=== PATIENT | female | born 1975 | race Caucasian/White ===

== ENCOUNTER 2017-02-15 16:21 | Inpatient (IN) | payer OTHER ==
[~2017-02-15] VITALS: Ht 167.6 cm; Wt 77.1 kg
[2017-02-15 17:17] LABS: microscopic required? NO
[2017-02-15 17:25] LABS: BASOPHIL % 0.3 % (0-2); PLATELET COUNT 219 x10^3mcL (130-400)
[2017-02-15 17:34] LABS: RED CELL DISTRIBUTION WIDTH 15.8 % (11.5-14.5)
[2017-02-15 17:35] LABS: CALCIUM 8.5 mg/dL (8.5-10.1); CARBON DIOXIDE 27.7 mmol/L (21-32); CHLORIDE SERUM 104 mmol/L (98-107); CREATININE SERUM 0.7 mg/dL (0.6-1.0); GFR1 > 60 mL/min; GLUCOSE SERUM 86 mg/dL (74-106); POTASSIUM SERUM 3.9 mmol/L (3.5-5.1); SODIUM SERUM 139 mmol/L (136-145)
[2017-02-15 17:37] LABS: urine erythrocyte NEGATIVE (NEGATIVE)
[2017-02-15 17:39] LABS: ALBUMIN 3.5 g/dL (3.4-5.0); ALKALINE PHOSPHATASE 54 U/L (46-116); ALT/SGPT 21 U/L (14-59); AST/SGOT 19 U/L (15-37); BILIRUBIN TOTAL 0.2 mg/dL (0.20-1.00); LIPASE 117 IU/L (73-393); MAGNESIUM 1.7 mg/dL (1.8-2.4); TOTAL PROTEIN, SERUM 6.8 g/dL (6.4-8.2)
[2017-02-15 21:11] VITALS: BP 128/72
[2017-02-15 21:44] LABS: CHOLESTEROL/HDL RATIO 1.8
[2017-02-15 21:46] LABS: AMPHETAMINE QUAL UR NONE DETECTED (NEG <=1000)
[2017-02-15 21:49] LABS: FREE T4 0.79 ng/dL (0.76-1.46); FREE THYROXINE INDEX 2.2 ug/dL (1.4-4.5); T4(THYROXINE) 6.7 ug/dL (4.7-13.3)
[2017-02-15 21:51] LABS: T3 TOTAL 0.92 ng/mL
[2017-02-16 06:13] VITALS: BP 114/57
[2017-02-16 06:14] LABS: BASOPHIL % 0.4 % (0-2); PLATELET COUNT 198 x10^3mcL (130-400)
[2017-02-16 06:42] LABS: CALCIUM 7.9 mg/dL (8.5-10.1); CARBON DIOXIDE 27.7 mmol/L (21-32); CHLORIDE SERUM 106 mmol/L (98-107); CREATININE SERUM 0.7 mg/dL (0.6-1.0); GFR1 > 60 mL/min; GLUCOSE SERUM 78 mg/dL (74-106); MAGNESIUM 1.7 mg/dL (1.8-2.4); PHOSPHOROUS 3.1 mg/dL (2.5-4.9); POTASSIUM SERUM 4.1 mmol/L (3.5-5.1); SODIUM SERUM 141 mmol/L (136-145)
[2017-02-16 06:44] LABS: RED CELL DISTRIBUTION WIDTH 15.7 % (11.5-14.5)
[2017-02-16 09:38] VITALS: BP 112/67
[2017-02-16 13:01] VITALS: BP 108/66
[2017-02-16 18:06] VITALS: BP 126/72
[2017-02-16 21:51] VITALS: BP 119/68
[2017-02-17 06:22] LABS: BASOPHIL % 0.4 % (0-2); PLATELET COUNT 195 x10^3mcL (130-400)
[2017-02-17 06:33] VITALS: BP 131/61
[2017-02-17 06:39] LABS: CARBON DIOXIDE 22.1 mmol/L (21-32); CHLORIDE SERUM 104 mmol/L (98-107); CREATININE SERUM 0.8 mg/dL (0.6-1.0); GFR1 > 60 mL/min; MAGNESIUM 1.8 mg/dL (1.8-2.4); SODIUM SERUM 137 mmol/L (136-145)
[2017-02-17 06:41] LABS: GLUCOSE SERUM 59 mg/dL (74-106)
[2017-02-17 07:21] LABS: RED CELL DISTRIBUTION WIDTH 15.2 % (11.5-14.5)
[2017-02-17 09:22] VITALS: BP 129/77
[2017-02-17 09:25] LABS: IRON 55 ug/dL (50-170); TOTAL IRON BINDING CAPACITY 377 ug/dL (250-450)
[2017-02-17 13:47] VITALS: BP 138/66
[2017-02-17 17:06] VITALS: BP 110/68
[2017-02-17 21:05] VITALS: BP 132/70
[2017-02-18 05:45] VITALS: BP 113/61
[2017-02-18 06:16] LABS: BASOPHIL % 0.1 % (0-2); PLATELET COUNT 221 x10^3mcL (130-400)
[2017-02-18 06:29] LABS: CALCIUM 8.3 mg/dL (8.5-10.1); CARBON DIOXIDE 24.8 mmol/L (21-32); CHLORIDE SERUM 104 mmol/L (98-107); CREATININE SERUM 0.7 mg/dL (0.6-1.0); GFR1 > 60 mL/min; GLUCOSE SERUM 131 mg/dL (74-106); SODIUM SERUM 131 mmol/L (136-145)
[2017-02-18 06:46] LABS: RED CELL DISTRIBUTION WIDTH 15.5 % (11.5-14.5)
[2017-02-18 09:52] VITALS: BP 128/78
[2017-02-18 14:17] VITALS: BP 118/54
[2017-02-18 16:06] VITALS: BP 118/54
[2017-02-18 17:57] VITALS: BP 128/75
== END 2017-02-18 18:10 | disposition home or self-care (01) | DRG 241 ==
LOC: ED 16:21 → DU 20:05 → MU 20:05 → DU 21:05 → MU 02-18 08:50
PROVIDERS: Emergency Medicine; Internal Medicine Gastroenterology; ADMIT Family Medicine
PROC: 0DB78ZX Excision of Stomach, Pylorus, Via Natural or Artificial Opening Endoscopic, Diagnostic (ICD-10-PCS; principal; 2017-02-18 10:15)
PROC: 0DBB8ZX Excision of Ileum, Via Natural or Artificial Opening Endoscopic, Diagnostic (ICD-10-PCS; 2017-02-18 10:15)
DX: K29.70 Gastritis, unspecified, without bleeding (principal); K76.0 Fatty (change of) liver, not elsewhere classified; E83.42 Hypomagnesemia; D50.0 Iron deficiency anemia secondary to blood loss (chronic); F17.220 Nicotine dependence, chewing tobacco, uncomplicated; E78.5 Hyperlipidemia, unspecified; F12.10 Cannabis abuse, uncomplicated; Z68.27 Body mass index [BMI] 27.0-27.9, adult; Z53.29 Procedure and treatment not carried out because of patient's decision for other reasons
CPT/HCPCS: 43235; 45378; 82962; 83880; 84439; G0480; J1200; J1610; J1720; J2250; J2270; J2310; J2405; J3010; J3360; J3475; J3490; J7030; J7042; Q0092; Q0177; Q9966; Q9967

== ENCOUNTER 2017-10-09 13:52 | Emergency (ER) | payer SELFPAY ==
[~2017-10-09] VITALS: Ht 167.6 cm; Wt 77.1 kg
[2017-10-09 14:01] VITALS: Ht 167.6 cm; Wt 77.1 kg
[2017-10-09 14:45] LABS: BASOPHIL % 0.3 % (0-2); PLATELET COUNT 352 x10^3mcL (130-400)
[2017-10-09 14:55] LABS: CALCIUM 8.6 mg/dL (8.5-10.1); CARBON DIOXIDE 25.3 mmol/L (21-32); CHLORIDE SERUM 104 mmol/L (98-107); CREATININE SERUM 0.9 mg/dL (0.6-1.0); GFR1 > 60 mL/min; GLUCOSE SERUM 96 mg/dL (74-106); POTASSIUM SERUM 4.1 mmol/L (3.5-5.1); SODIUM SERUM 141 mmol/L (136-145)
[2017-10-09 15:05] LABS: ALBUMIN 3.5 g/dL (3.4-5.0); ALKALINE PHOSPHATASE 69 U/L (46-116); ALT/SGPT 30 U/L (14-59); AMYLASE 37 U/L (25-115); AST/SGOT 16 U/L (15-37); BILIRUBIN TOTAL 0.4 mg/dL (0.20-1.00); LIPASE 65 IU/L (73-393); TOTAL PROTEIN, SERUM 7.1 g/dL (6.4-8.2)
[2017-10-09 15:33] LABS: UA SPECIFIC GRAVITY >=1.030 (1.005-1.035); microscopic required? YES; urine erythrocyte 1+ (NEGATIVE)
[2017-10-09 16:02] VITALS: BP 151/66
== END 2017-10-09 16:02 | disposition home or self-care (01) ==
LOC: ED 13:52
PROVIDERS: Emergency Medicine
DX: R10.30 Lower abdominal pain, unspecified (principal); J45.909 Unspecified asthma, uncomplicated
CPT/HCPCS: J1885; J2405; J7030

== ENCOUNTER 2018-03-04 10:06 | Emergency (ER) | payer MEDICAID ==
[~2018-03-04] VITALS: Ht 167.6 cm; Wt 81.2 kg
[2018-03-04 10:10] VITALS: Ht 167.6 cm; Wt 81.2 kg
[2018-03-04 11:46] VITALS: BP 153/98
== END 2018-03-04 11:46 | disposition home or self-care (01) ==
LOC: ED 10:06
DX: S40.012A Contusion of left shoulder, initial encounter (principal); W10.8XXA Fall (on) (from) other stairs and steps, initial encounter; Y93.89 Activity, other specified; Y92.89 Other specified places as the place of occurrence of the external cause; Y99.8 Other external cause status
CPT/HCPCS: J1200; J1885; J2270; Q0092

== ENCOUNTER 2019-11-19 10:58 | Emergency (ER) | payer MEDICAID ==
[~2019-11-19] VITALS: Ht 162.6 cm; Wt 69.4 kg
[2019-11-19 11:11] VITALS: Ht 162.6 cm; Wt 69.4 kg
[2019-11-19 12:17] LABS: PLATELET COUNT 329 x10^3mcL (130-400)
[2019-11-19 12:23] LABS: RED CELL DISTRIBUTION WIDTH 18.2 % (11.5-14.5)
[2019-11-19 12:33] LABS: CALCIUM 8.5 mg/dL (8.5-10.1); CARBON DIOXIDE 27.1 mmol/L (21-32); CHLORIDE SERUM 105 mmol/L (98-107); CREATININE SERUM 0.8 mg/dL (0.6-1.0); GFR1 > 60 mL/min; GLUCOSE SERUM 80 mg/dL (74-106); POTASSIUM SERUM 3.9 mmol/L (3.5-5.1); SODIUM SERUM 140 mmol/L (136-145)
[2019-11-19 12:37] LABS: ALBUMIN 3.6 g/dL (3.4-5.0); ALKALINE PHOSPHATASE 70 U/L (46-116); ALT/SGPT 27 U/L (14-59); AST/SGOT 19 U/L (15-37); BILIRUBIN TOTAL 0.4 mg/dL (0.20-1.00); TOTAL PROTEIN, SERUM 7.1 g/dL (6.4-8.2)
[2019-11-19 16:47] VITALS: BP 126/76
== END 2019-11-19 16:47 | disposition home or self-care (01) ==
LOC: ED 10:58
PROVIDERS: Emergency Medicine
DX: F10.239 Alcohol dependence with withdrawal, unspecified (principal); J45.909 Unspecified asthma, uncomplicated; F15.10 Other stimulant abuse, uncomplicated; Y90.0 Blood alcohol level of less than 20 mg/100 ml
CPT/HCPCS: G0480; J3490; Q0092

== ENCOUNTER 2019-12-02 07:42 | Emergency (ER) | payer MEDICAID ==
[~2019-12-02] VITALS: Ht 165.1 cm; Wt 69.9 kg
[2019-12-02 07:51] VITALS: Ht 165.1 cm; Wt 69.9 kg
[2019-12-02 10:11] VITALS: BP 120/49
== END 2019-12-02 10:11 | disposition home or self-care (01) ==
LOC: ED 07:42
DX: S63.502A Unspecified sprain of left wrist, initial encounter (principal); J45.909 Unspecified asthma, uncomplicated; X58.XXXA Exposure to other specified factors, initial encounter; Y93.89 Activity, other specified; Y92.89 Other specified places as the place of occurrence of the external cause; Y99.8 Other external cause status
CPT/HCPCS: Q0092